=== PATIENT | female | born 1975 | race Caucasian/White ===

== ENCOUNTER 2018-07-08 16:34 | Emergency (ER) | payer OTHER ==
[2018-07-08 17:05] VITALS: BMI 22.8
[2018-07-08 17:08] VITALS: PULSE 88; TEMP 98.5; O2SAT 100
--- NOTE | 2018-07-08 17:57 | RAD ---
Date of service: 07/08/2018 PROCEDURE: Radiographs of the Right Shoulder HISTORY: Right upper extremity Pain. No history of recent/ related trauma provided COMPARISON: No prior. FINDINGS: BONES: Normal. No fracture. JOINTS: Normal. Glenohumeral and acromioclavicular joints preserved. No osteoarthritis. SOFT TISSUES: Normal. OTHER FINDINGS: None. IMPRESSION: Normal radiographs of the right shoulder.
--- NOTE | 2018-07-08 18:11 | C.PDOC ---
History Of Present Illness 42 year old female presents to the ED complaining of right shoulder pain for 3 days. She states she was doing house work when she felt mild pain in her right shoulder. Pain worsened which prompted ED visit. Denies any trauma/injuries. Denies weakness, numbness, tingling. Time Seen by Provider: 07/08/18 17:17 Chief Complaint (Nursing): Upper Extremity Problem/Injury History Per: Patient History/Exam Limitations: no limitations Onset/Duration Of Symptoms: Days Current Symptoms Are (Timing): Still Present Quality: "Pain" Past Medical History Reviewed: Historical Data, Nursing Documentation, Vital Signs Vital Signs: Last Vital Signs Temp 98.5 F 07/08/18 17:05 Pulse 88 07/08/18 17:05 Resp 18 07/08/18 17:05 BP 113/68 07/08/18 17:05 Pulse Ox 100 07/08/18 17:05 - Medical History PMH: No Chronic Diseases Surgical History: No Surg Hx Family History: States: No Known Family Hx - Social History Hx Tobacco Use: No Hx Alcohol Use: No Hx Substance Use: No - Immunization History Hx Tetanus Toxoid Vaccination: No Hx Influenza Vaccination: No Hx Pneumococcal Vaccination: No Review Of Systems Except As Marked, All Systems Reviewed And Found Negative. Musculoskeletal: Positive for: Shoulder Pain (right shoulder) Neurological: Negative for: Weakness, Numbness Physical Exam - Physical Exam Appears: Non-toxic Skin: Warm, Dry Head: Normacephalic Eye(s): bilateral: Normal Inspection Nose: Normal Oral Mucosa: Moist Neck: Normal ROM Cardiovascular: Rhythm Regular Extremity: Normal ROM, Tenderness (mild tenderness to right shoulder ), Capillary Refill (less than 2 sec to right shoulder ), No Deformity, No Swelling Extremity: Bilateral: Atraumatic, Normal Color And Temperature, Normal ROM Neurological/Psych: Oriented x3, Normal Speech Gait: Steady ED Course And Treatment O2 Sat by Pulse Oximetry: 100 (RA) Pulse Ox Interpretation: Normal - Other Rad XR right shoulder X-Ray: Viewed By Me, Read By Radiologist Interpretation: Accession No. : [id number]. Patient Name / ID : MIGUELITO TELLEZ / [id number]. Exam Date : 07/08/2018 17:44:45 ( Approved ). Study Comment : Sex / Age : F / 42Y. Creator : Jose Alford MD. Dictator : Jose Alford MD. Field Automobile Adjuster : Sas Programmer : Jose Alford MD. Approver2 : Report Date : 07/08/2018 17:56:25. My Comment : . Date of service: 07/08/2018. PROCEDURE: Radiographs of the Right Shoulder. HISTORY: Right upper extremity Pain. No history of recent/ related trauma provided. COMPARISON: No prior. FINDINGS: BONES: Normal. No fracture. JOINTS: Normal. Glenohumeral and acromioclavicular joints preserved. No osteoarthritis. SOFT TISSUES: Normal. OTHER FINDINGS: None. IMPRESSION: Normal radiographs of the right shoulder. Progress Note: Patient treated with Tylenol 650mg PO. XR of right shoudler ordered. Images show no fracture or dislocation. Disposition - Disposition Referrals: Heath Sena MD [Staff Provider] - Disposition: HOME/ ROUTINE Disposition Time: 18:09 Condition: STABLE Additional Instructions: Follow up with PMD and Orthopedist within 1-2 days. Return to ED if feel worse. Prescriptions: Lidocaine 4% [Lidocaine 4% 50 ml Topical (or)] 1 appl TOP QID #1 bottle Acetaminophen [Tylenol 325mg tab] 2 tab PO Q6 #50 tab Instructions: Shoulder Pain (DC) Forms: [facility] (Lux[place]ish) - Clinical Impression Clinical Impression: Shoulder pain - PA / SERVER SECURITY ADMINISTRATOR / Resident Statement MD/DO has reviewed & agrees with the documentation as recorded. - Scribe Statement The provider has reviewed the documentation as recorded by the Scribwyatt Almodovar All medical record entries made by the Scribe were at my direction and personally dictated by me. I have reviewed the chart and agree that the record accurately reflects my personal performance of the history, physical exam, medical decision making, and the department course for this patient. I have also personally directed, reviewed, and agree with the discharge instructions and disposition.
[2018-07-08 19:13] VITALS: BP 116/75; RESP 20
== END 2018-07-08 18:37 | disposition home or self-care (01) ==
LOC: C.ER 16:34
DX: M25.511 Pain in right shoulder (principal)